=== PATIENT | male | born 1965 | race Caucasian/White ===

== ENCOUNTER 2016-11-15 17:56 | Emergency (ER) | payer MEDICAID ==
[~2016-11-15] VITALS: Ht 182.9 cm; Wt 68.0 kg
[2016-11-15 19:14] VITALS: BP 127/77
[2016-11-15] MEDS ORDERED: OXYCODONE ER 10 MG TAB.ER.12H. PO STA (19:26)
[2016-11-15] MEDS ORDERED: FENTANYL PF 100 MCG/2 ML VIAL. IM ONE (19:30)
[2016-11-15] MEDS ORDERED: AMOX875T PO (19:41)
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
== END 2016-11-15 19:48 | disposition home or self-care (01) ==
LOC: ER 17:56
DX: K02.9 Dental caries, unspecified (principal); K08.89 Other specified disorders of teeth and supporting structures; M79.605 Pain in left leg; G89.29 Other chronic pain; F17.200 Nicotine dependence, unspecified, uncomplicated; E11.9 Type 2 diabetes mellitus without complications; Z88.5 Allergy status to narcotic agent
CPT/HCPCS: 96372; 99283; J3010

== ENCOUNTER 2016-11-17 08:25 | Emergency (ER) | payer MEDICAID ==
[~2016-11-17] VITALS: Ht 182.9 cm; Wt 68.0 kg
[~2016-11-17 08:25] MED LIST: AMOX875T PO
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
[2016-11-17] MEDS ORDERED: OXYCODONE/APAP 10/325 TABLET. PO ONE (09:30)
== END 2016-11-17 09:40 | disposition home or self-care (01) ==
LOC: ER 08:25
DX: M25.572 Pain in left ankle and joints of left foot (principal); F11.20 Opioid dependence, uncomplicated; G89.29 Other chronic pain; E11.9 Type 2 diabetes mellitus without complications; Z88.5 Allergy status to narcotic agent; Z96.662 Presence of left artificial ankle joint
CPT/HCPCS: 99282

== ENCOUNTER 2016-11-19 18:06 | Emergency (ER) | payer MEDICAID ==
[2016-11-19 19:22] VITALS: BP 126/74
[2016-11-19] MEDS ORDERED: DICL100T PO (19:44)
[2016-11-19] MEDS ORDERED: TRAM50TA PO (19:44)
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
== END 2016-11-19 19:51 | disposition home or self-care (01) ==
LOC: ER 18:06
DX: G89.29 Other chronic pain (principal); M79.662 Pain in left lower leg; Z88.5 Allergy status to narcotic agent
CPT/HCPCS: 99283